=== PATIENT | male | born 1970 | race Caucasian/White ===

== ENCOUNTER 2023-05-25 16:53 | Emergency (ER) | payer BC ==
[~2023-05-25] VITALS: Ht 177.8 cm; Wt 83.9 kg
[2023-05-25] MEDS ORDERED: HYDROMORPHONE 1 MG/1 ML DISP.SYRIN IV ONE (17:15)
[2023-05-25] MEDS ORDERED: KETOROLAC TROMETHAMINE 15 MG INJ IVP ONE (17:15)
[2023-05-25] MEDS ORDERED: IV NORMAL SALINE 1000 ML BAG IV ONE (17:15)
[2023-05-25] MEDS ORDERED: ONDANSETRON 4 MG/2 ML VIAL IV ONE (17:15)
[2023-05-25] MEDS ORDERED: KETOROLAC TROMETHAMINE 30 MG INJ ONE (17:27)
[2023-05-25] MEDS ORDERED: HYDROMORPHONE 1 MG/1 ML DISP.SYRIN ONE (17:27)
[2023-05-25] MEDS ORDERED: ONDANSETRON 4 MG/2 ML VIAL ONE (17:27)
[2023-05-25] MEDS ORDERED: DIAZEPAM 10 MG/2 ML DISP.SYRIN IV ONE (18:00)
[2023-05-25] MEDS ORDERED: DIAZEPAM 10 MG/2 ML DISP.SYRIN ONE (18:01)
[2023-05-25] MEDS ORDERED: METH4TAB3 PO (18:09)
[2023-05-25] MEDS ORDERED: DIAZ5TAB PO (18:09)
[2023-05-25] MEDS ORDERED: IBUP-1957 PO (18:31)
[2023-05-25] MEDS ORDERED: HYDR-3980 PO (18:31)
[2023-05-25 20:24] VITALS: BP 128/74; TEMP 98.5; O2SAT 98
== END 2023-05-25 20:20 | disposition home or self-care (01) ==
LOC: ER 16:53
DX: M62.830 Muscle spasm of back (principal); M54.50 Low back pain, unspecified; Z79.899 Other long term (current) drug therapy; Z88.0 Allergy status to penicillin; Z88.1 Allergy status to other antibiotic agents
CPT/HCPCS: 99284; 96374; 96375; 96361; J3360; J1885; J2405; J1170; J7040 ×2; A4606; A4663